=== PATIENT | male | born 1950 | race Caucasian/White ===

== ENCOUNTER 2017-06-20 11:08 | Day surgery (SDC) | payer MEDICARE, OTHER ==
[~2017-06-20] VITALS: Ht 175.3 cm; Wt 80.9 kg
[2017-06-20 11:59] LABS: POTASSIUM 4.6 mmol/L (3.4-5.0)
[2017-06-20 12:02] VITALS: BP 150/103; PULSE 99; TEMP 98.6
[2017-06-20] MEDS ORDERED: ZYLOPRIM 300MG300 MG PO (12:04)
[2017-06-20] MEDS ORDERED: COUMADIN 2MG2 MG/TAB PO (12:04)
[2017-06-20] MEDS ORDERED: LOPRESSOR100 MG PO (12:05)
[2017-06-20] MEDS ORDERED: PRIL40 PO (12:05)
[2017-06-20] MEDS ORDERED: ZOLOFT 50MG50 MG PO (12:06)
[2017-06-20] MEDS ORDERED: VENTOLIN0.09 MG IH (12:07)
[2017-06-20] MEDS ORDERED: LIPITOR 40MG TA40 MG PO (12:07)
[2017-06-20] MEDS ORDERED: ASPIRIN 32325 MG/TAB PO (12:07)
[2017-06-20] MEDS ORDERED: VITAMIN D31000 I1 PO (12:07)
[2017-06-20] MEDS ORDERED: COZAAR 50MG50 MG/TAB PO (12:08)
[2017-06-20] MEDS ORDERED: ULTRAM 50MG TAB50 MG PO (12:08)
[2017-06-20 12:34] LABS: THYROID STIMULATING HORMONE 4.78 uIU/mL (0.465-4.680)
[2017-06-20 12:45] LABS: PROTHROMBIN TIME 116.4 SECONDS (9.7-12.8)
[2017-06-20 12:46] LABS: INR 9.6 (0.8-3.0)
== END 2017-06-20 14:02 | disposition home or self-care (01) ==
LOC: COL.CAR 11:08
PROVIDERS: Internal Medicine Interventional Cardiology
DX: I48.0 Paroxysmal atrial fibrillation (principal); I47.1 Supraventricular tachycardia; E78.5 Hyperlipidemia, unspecified; I50.22 Chronic systolic (congestive) heart failure; I27.20 Pulmonary hypertension, unspecified; I36.1 Nonrheumatic tricuspid (valve) insufficiency; R07.89 Other chest pain; Z53.8 Procedure and treatment not carried out for other reasons; Z79.01 Long term (current) use of anticoagulants; Z79.82 Long term (current) use of aspirin; Z82.49 Family history of ischemic heart disease and other diseases of the circulatory system

== ENCOUNTER → 2017-07-03 | Day surgery (SDC) | payer MEDICARE, OTHER ==
[~2017-07-03] VITALS: Ht 175.4 cm; Wt 88.0 kg
[~2017-07-03] MED LIST: ALDACTONE 25MG25 M1 PO; ASPIRIN 32325 MG/TAB PO; COUMADIN 2MG2 MG/TAB PO; COZAAR 50MG50 MG/TAB PO; ELIQUIS 5MG PO; LIPITOR 40MG TA40 MG PO; LOPRESSOR100 MG PO; PRIL40 PO; REQUIP 1MG T1 MG/TAB PO; ULTRAM 50MG TAB50 MG PO; VENTOLIN0.09 MG IH; VITAMIN D31000 I1 PO; ZOLOFT 50MG50 MG PO; ZYLOPRIM 300MG300 MG PO
[2017-07-03 13:38] VITALS: BP 123/74; PULSE 65; TEMP 98.5
[2017-07-03 13:39] LABS: INR 2.3 (0.8-3.0)
[2017-07-03 13:41] LABS: POTASSIUM 4.7 mmol/L (3.4-5.0)
[2017-07-03 14:15] LABS: THYROID STIMULATING HORMONE 4.55 uIU/mL (0.465-4.680)
[2017-07-03 15:55] VITALS: BP 137/94; PULSE 85
[2017-07-03 16:10] VITALS: BP 137/85; PULSE 85; TEMP 98
[2017-07-03 16:25] VITALS: BP 123/78; PULSE 74
[2017-07-03 16:40] VITALS: BP 118/99; PULSE 68
[2017-07-03 16:55] VITALS: BP 127/86; PULSE 70
== END ==
LOC: COL.CAR 12:52
PROVIDERS: Internal Medicine Interventional Cardiology
DX: I48.0 Paroxysmal atrial fibrillation (principal); I50.22 Chronic systolic (congestive) heart failure; Z79.01 Long term (current) use of anticoagulants; Z79.82 Long term (current) use of aspirin; Z79.899 Other long term (current) drug therapy
CPT/HCPCS: G9654; J0282; J2250; J2704; J3010; J7030; J7060